=== PATIENT | male | born 1975 | race Caucasian/White ===

== ENCOUNTER 2016-11-21 15:57 | Emergency (ER) | payer SELFPAY ==
[~2016-11-21] VITALS: Ht 180.3 cm; Wt 113.4 kg
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
[2016-11-21] MEDS ORDERED: ONDANSETRON ODT 4 MG TAB.RAPDIS. ONE (16:39)
[2016-11-21] MEDS ORDERED: HYDROcodone/APAP 5/325MG 1 TAB TABLET ONE (16:40)
[2016-11-21] MEDS ORDERED: CYCLOBENZAPRINE 10 MG TABLET. PO ONE (16:45)
[2016-11-21] MEDS ORDERED: HYDROcodone/APAP 5/325MG 1 TAB TABLET PO ONE (16:45)
[2016-11-21] MEDS ORDERED: ONDANSETRON ODT 4 MG TAB.RAPDIS. PO ONE (16:45)
[2016-11-21 17:32] LABS: BILIRUBIN,URINE NEGATIVE (NEG); GLUCOSE,URINE NEGATIVE (NEG); NITRITE,URINE NEGATIVE (NEG); PH,URINE 7.5; PROTEIN,URINE NEGATIVE (NEG-TRACE)
[2016-11-21 17:38] LABS: BACTERIA,URINE 0 /HPF (0-FEW); RBC,URINE OCC /HPF (0-2); SQUAMOUS EPITHELIAL CELL,UR FEW /LPF; WBC,URINE OCC /HPF (0-4)
[2016-11-21 17:40] LABS: BARBITURATES NEG (NEG); BENZODIAZEPINES NEG (NEG); CANNABINOIDS POS (NEG); COCAINE NEG (NEG); METHADONE NEG (NEG); OPIATES NEG (NEG); PHENCYCLIDINE NEG (NEG)
[2016-11-21] MEDS ORDERED: IV NORMAL SALINE 1000ML BAG 1,000 ML IV ONE (17:45)
[2016-11-21] MEDS ORDERED: MORPHINE SULFATE 10 MG/ML VIAL. IV ONE (17:45)
[2016-11-21] MEDS ORDERED: ONDANSETRON PF 4 MG/2 ML VIAL. IV ONE (17:45)
[2016-11-21] MEDS ORDERED: KETOROLAC TROMETHAMINE 30 MG/ML INJ. IV ONE (17:45)
[2016-11-21 18:00] VITALS: BP 149/87
[2016-11-21 18:09] LABS: BASO # 0.1 x10^3/uL (0.0-0.2); BASO % 1 % (0-3); EOS % 1 % (0-3); HEMATOCRIT 42.7 % (39.0-53.0); HEMOGLOBIN 15.2 g/dL (13.0-17.5); LYMPH # 2.6 x10^3/uL (1.0-4.8); LYMPH % 27 % (24-48); MEAN CORPUSCULAR HEMOGLOBIN 32 pg (25-35); MEAN CORPUSCULAR HGB CONC 36 g/dL (31-37); MEAN CORPUSCULAR VOLUME 89 fL (79-100); MONO % 6 % (0-9); NEUT % 67 % (31-73); PLATELET COUNT 232 x10^3/uL (140-400); RED BLOOD COUNT 4.81 x10^6/uL (4.30-5.70); RED CELL DISTRIBUTION WIDTH 13.7 % (11.5-14.5); WHITE BLOOD COUNT 9.7 x10^3/uL (4.0-11.0)
[2016-11-21 18:14] LABS: CALCIUM 8.7 mg/dL (8.5-10.1); CREATININE 0.9 mg/dL (0.7-1.3); GFR 93.9
[2016-11-21 18:17] LABS: INR 1.1 (0.8-1.1); PROTHROMBIN TIME PATIENT 13.1 SEC (11.7-14.0)
[2016-11-21 18:20] LABS: ALBUMIN 3.9 g/dL (3.4-5.0); ALBUMIN/GLOBULIN RATIO 1.3 (1.0-1.7); TOTAL BILIRUBIN 0.4 mg/dL (0.2-1.0); TOTAL PROTEIN 6.9 g/dL (6.4-8.2)
[2016-11-21] MEDS ORDERED: HYDR-971 PO (18:53)
[2016-11-21] MEDS ORDERED: DIAZ5TAB PO (18:53)
--- NOTE | 2016-11-22 08:47 | RAD ---
Examination: 2 views of the left hip and frontal view the pelvis History: History of fall, pain, Comparison: None available Findings: The left femoral head is within the acetabulum. There is no acute fracture or dislocation identified. Calcification or metallic densities projects within the pelvis, nonspecific. Impression: 1. No acute osseous findings. 2.Calcification or metallic densities projects within the pelvis, nonspecific.
--- NOTE | 2016-11-22 08:50 | RAD ---
Examination: Frontal view of the chest with left RIBS History: History of fall, pain Comparison: None available. Findings: The cardiomediastinal silhouette grossly appears unremarkable. There is no acute infiltrate or visualized pneumothorax identified. No evidence of displaced left rib fracture. Impression: 1. No acute cardiopulmonary findings 2. No evidence of displaced left rib fracture.
== END 2016-11-21 19:23 | disposition home or self-care (01) ==
LOC: ER 17:16
DX: S20.212A Contusion of left front wall of thorax, initial encounter (principal); S70.02XA Contusion of left hip, initial encounter; F10.20 Alcohol dependence, uncomplicated; R78.0 Finding of alcohol in blood; Y90.6 Blood alcohol level of 120-199 mg/100 ml; F12.10 Cannabis abuse, uncomplicated; W10.9XXA Fall (on) (from) unspecified stairs and steps, initial encounter; Y93.89 Activity, other specified; Y92.89 Other specified places as the place of occurrence of the external cause; Y99.8 Other external cause status
CPT/HCPCS: 36415; 71101; 73502; 80053; 80305; 80320; 81001; 83690; 85027; 85610; 85730; 96361; 96374; 96375; 99285; J1885; J2270; J2405; J7030; Q0162; G0480; G0481